=== PATIENT | female | born 1995 | race African-American/Black ===

== ENCOUNTER 2023-08-25 18:42 | Emergency (ER) | payer MEDICAID ==
[~2023-08-25] VITALS: Ht 160 cm; Wt 53.0 kg
[~2023-08-25 18:42] MED LIST: IBUP-2028 PO
[2023-08-25 19:19] VITALS: O2SAT 100
[2023-08-25] MEDS ORDERED: [UNRECOGNIZED DRUG - CODE] MT (19:19)
[2023-08-25] MEDS ORDERED: PENI500T MT (19:20)
[2023-08-25] MEDS ORDERED: PENICILLIN V POTASSIUM 250MG TABLET PO SCH (20:00)
[2023-08-25 20:32] VITALS: BP 123/76; PULSE 99; RESP 16; TEMP 98.5
== END 2023-08-25 20:33 | disposition home or self-care (01) ==
LOC: ER 18:42
DX: J02.9 Acute pharyngitis, unspecified (principal)
CPT/HCPCS: 99283